=== PATIENT | male | born 1970 | race African-American/Black ===

== ENCOUNTER 2023-11-08 12:46 | Emergency (ER) | payer OTHER ==
[2023-11-08 12:58] VITALS: BP 152/79; PULSE 97; RESP 18; TEMP 98.1
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
--- NOTE | 2023-11-08 14:02 | XR ---
EXAMINATION TYPE: XR shoulder complete LT DATE OF EXAM: 11/08/2023 1:29 PM CLINICAL INDICATION:Male, 53 years old with history of pain, old injury never evaluated. COMPARISON: None. TECHNIQUE: The left shoulder was examined in AP, internally rotated and scapular Y projections. FINDINGS: No evidence of acute osseous pathology, joint dislocation, or soft tissue swelling. Mild osteoarthrit ic changes of the glenohumeral joint are appreciated. The remaining portions of the visualized chest are unremarkable. IMPRESSION: No acute osseous pathology.
== END 2023-11-08 15:03 | disposition home or self-care (01) ==
LOC: EC 12:46
DX: S49.92XA Unspecified injury of left shoulder and upper arm, initial encounter (principal); M19.012 Primary osteoarthritis, left shoulder; F17.200 Nicotine dependence, unspecified, uncomplicated; V29.99XA Rider (driver) (passenger) of other motorcycle injured in unspecified traffic accident, initial encounter
CPT/HCPCS: 99283